=== PATIENT | male | born 1960 | race Caucasian/White ===

== ENCOUNTER → 2017-04-25 | Day surgery (SDC) | payer OTHER ==
[~2017-04-25] MED LIST: ACID REDUCER20 MG; ALEVE; COREG; DULOXETINE HCL30 MG PO; LISINOPRIL20 MG PO; LORTAB 7.5-5001 TAB PO; NABUMETONE PO; NAPROSYN500 MG PO; OMEPRAZOLE40 M1 PO; PRILOSEC40 MG PO; SYNTHROID PO; THYROID; VITAMIN D-32000 UNIT PO
--- NOTE | ~2017-04-25 | OR ---
Unit #: [id number] #: [id number] Patient: HAYLEE ANDINO [id number] [address] [place], [place] [address] [id number] MR#: [id number] NAME: HAYLEE ANDINO. ROOM: Date of Procedure: 04/25/2017 Admission Date: 04/25/2017 Surgeon: Mayank Charles M.D. : 1960 Attending Physician: Mayank Charles M.D. Primary Care Physician: Kevin Becerra D.O. OPERATIVE REPORT PREOPERATIVE DIAGNOSES Colorectal cancer screening. The patient has family history of colon cancer in mother. PROCEDURES PERFORMED 1. Colonoscopy and polypectomy. 2. Colonoscopy and submucosal injection. POSTOPERATIVE DIAGNOSES 1. The patient had 3 polyps, the largest of these was in the proximal descending colon. It was about 2 cm in size and was removed using snare cautery polypectomy. 2. A second polyp, which was about 1.5 cm in size was seen in the cecum. It was a flat adenoma and was removed after submucosal saline injection and technique of piecemeal polypectomy. 3. A third polyp was small in the transverse colon, about 8 mm in size, was also removed using snare polypectomy. 4. The patient also had mild sigmoid and descending colon diverticulosis. 5. Rest of the examination up to cecum and terminal ileum was normal. The quality of the prep was excellent. RECOMMENDATIONS Follow up with results of polyp histology and consider repeat colonoscopy in 3 years. SEDATION USED MAC. DESCRIPTION OF PROCEDURE Following detailed explanation of potential risks and complications of a colonoscopy, namely perforation, bleeding, complication related to sedation, the patient was brought to GI lab and laid in the left lateral decubitus position. A digital rectal examination was performed, which was normal. Lubricated tip of the Olympus video colonoscope was inserted through the anus and advanced under direct vision. The scope was advanced and passed up to sigmoid into descending colon. Scant small diverticula were noted in this area. The scope tip was then navigated all the way up to cecum with visualization of the ileocecal valve and the appendiceal orifice. Preparation was good with good visualization and photodocumentation was obtained. Successive segments of the colonic mucosa were examined upon withdrawal. A 1.5 cm flat sessile adenoma was noted in the cecum. This was removed after submucosal saline elevation Unit #: [id number] #: [id number] Patient: HAYLEE ANDINO and using the technique of piecemeal polypectomy. The entire polyp was removed and sent for histology. Excellent hemostasis was achieved and photodocumentation was obtained. Second smaller polyp was present in the transverse colon about 8 mm in size. It was also removed using snare polypectomy. A third polyp was the largest was 2 cm in size in the descending colon. It was also removed using snare cautery polypectomy. All the polyps were retrieved and sent for histology after retrieval. Excellent hemostasis was achieved and photodocumentation was obtained. Other than the scant diverticula on the left side, no additional abnormalities noted. The patient did not have any internal hemorrhoids at anal verge. The scope was then withdrawn. The patient returned to the recovery area. She tolerated the procedure without any postprocedure complications. Dictated by... Neda Richey/june TD: 04/26/2017 05:34 JOB #: [id number] OPERATIVE REPORT Page 1 of 1 X Mayank Charles MD X PROCEDURE OPERATIVE NOTE
== END | disposition home or self-care (01) ==
LOC: COPS 07:01
DX: Z12.11 Encounter for screening for malignant neoplasm of colon (principal); D12.4 Benign neoplasm of descending colon; D12.3 Benign neoplasm of transverse colon; D12.0 Benign neoplasm of cecum; Z80.0 Family history of malignant neoplasm of digestive organs; K57.30 Diverticulosis of large intestine without perforation or abscess without bleeding; K21.9 Gastro-esophageal reflux disease without esophagitis; I10 Essential (primary) hypertension; E03.9 Hypothyroidism, unspecified
CPT/HCPCS: 88305